=== PATIENT | female | born 1945 | race Caucasian/White ===

== ENCOUNTER 2019-04-18 10:45 | Inpatient (IN) ==
[2019-04-18 11:32] LABS: BASO# 0.01 X1000 (0.0-0.2); BASO% 0.2 % (0.0-0.8); EOS# 0.04 X1000 (0.0-0.7); EOS% 0.8 % (0.0-10.0); HEMATOCRIT 33.4 % (37.0-47.0); HEMOGLOBIN 9.5 g/dL (12.0-16.0); LYMPH# 1.96 X1000 (1.2-3.4); LYMPH% 38.9 % (20.5-51.1); MCH 27.5 PG (27-31); MCHC 28.4 g/dL (33-37); MCV 96.8 FL (81-99); MONO# 0.67 X1000 (0.11-0.59); MONO% 13.3 % (1.7-9.3); MPV 10.4 FL (7.4-10.4); NEUT# 2.36 X1000 (1.4-6.5); NEUT% 46.8 % (42.2-75.2); PLT 276 X1000 (130-400); RBC 3.45 XMIL (4.2-5.4); RDW 15.7 % (11.5-14.5); WBC 5.04 X1000 (4.8-10.8)
[2019-04-18 11:40] LABS: INR 1.09; PTT 30.9 Seconds (22.3-41.8)
--- NOTE | 2019-04-18 11:50 | Diag Imaging Result Doc PS360 ---
EXAM: CT HEAD W/O CONTRAST 04/18/2019 HISTORY: AMS TECHNIQUE: This exam was performed using automated exposure control, adjustment of mA or kV according to patient size, and/or use of iterative reconstruction technique. COMMENT: There is no evidence of mass effect, bleed, or abnormal extra-axial fluid collection. Compared to 07/16/2013 there has been no significant change in the appearance of the brain. The calvarium is intact. The visualized paranasal sinuses are clear. IMPRESSION: No evidence of acute intracranial disease. Electronically signed by Lico Atkins 04/18/2019 11:47 AM
--- NOTE | 2019-04-18 11:55 | Diag Imaging Result Doc PS360 ---
EXAM: CHEST-PORTABLE 04/18/2019 HISTORY: AMS TECHNIQUE: AP portable at 1128 COMMENT: There is cardiomegaly increased pulmonary vascularity and interstitial and alveolar pulmonary edema. The inspiration is less optimal than on 12/23/2018. IMPRESSION: Cardiomegaly and pulmonary edema. Electronically signed by Lico Atkins 04/18/2019 11:52 AM
[2019-04-18 11:56] LABS: AGAP 9; ALB/GLOB RATIO 1.2; ALBUMIN 3.4 g/dL (3.5-5.0); ALKALINE PHOSPHATASE 139 U/L (32-104); BUN 9 mg/dL (8-22); CALCIUM 8.9 mg/dL (8.8-10.2); CHLORIDE 97 mmol/L (98-107); CK PROFILE 20 U/L (24-173); COSMO 286; CREATININE 0.6 mg/dL (0.5-0.9); ESTIMATED GFR > 60; GLUCOSE 104 mg/dL (70-104); GOT 12 U/L (10-30); GPT 6 U/L (10-36); POTASSIUM 4.7 mmol/L (3.5-5.1); SODIUM 144 mmol/L (136-145); TCO2 38 mmol/L (25-35); TOTAL BILIRUBIN 0.33 mg/dL (0.20-1.00); TOTAL PROTEIN 6.2 g/dL (6.3-8.3)
[2019-04-18 12:14] LABS: URINE SOURCE CATH
[2019-04-18 12:18] LABS: BILIRUBIN URINE NEGATIVE (NEGATIVE); BLOOD URINE NEGATIVE (NEGATIVE); COLOR YELLOW; GLUCOSE URINE NEGATIVE (NEGATIVE); KETONE URINE NEGATIVE (NEGATIVE); LEUKOCYTES URINE NEGATIVE (NEGATIVE); NITRITE URINE NEGATIVE (NEGATIVE); PH URINE 5.5; PROTEIN URINE TRACE mg/dL (NEGATIVE); SP GRAVITY URINE 1.015; TURBIDITY URINE CLEAR (CLEAR); UR EPITHELIAL CELLS <10 /HPF (<10); URINE BACTERIA NEGATIVE /HPF; URINE RBC <10 /HPF (<10); URINE WBC <10 /HPF (<10); UROBILINOGEN URINE NORMAL (NORMAL)
[2019-04-18 12:49] LABS: BLOOD TYPE ARTERIAL; SAMPLE BLOOD; pH(98.6) 7.34 (7.35-7.45)
[2019-04-18 12:50] LABS: HCO3-(ACT) 45.2 mmoll (20.0-26.0)
[2019-04-18 12:51] LABS: PCO2(98.6) 84 mmHg (35-45)
[2019-04-18 12:52] LABS: ALLEN TEST YES; MODALITY CANNULA; THB 10.2 g/dL (11.5-17.4)
[2019-04-18 14:15] LABS: ALLEN TEST YES; BE 21.3 mmoll (-3.0-3.0); BLOOD TYPE ARTERIAL; HCO3-(ACT) 41.5 mmoll (20.0-26.0); METHB 0.6 % (0.0-1.5); O2(CT) 12.8 mL/dL (15.0-23.0); O2HB 96.1 % (95.0-99.0); PO2(98.6) 149 mmHg (60-100); SAMPLE BLOOD; SAO2 99.1 % (95.0-100.0); THB 9.2 g/dL (11.5-17.4); pH(98.6) 7.28 (7.35-7.45)
[2019-04-18 14:16] LABS: MODALITY CANNULA; PCO2(98.6) 110 mmHg (35-45)
--- NOTE | 2019-04-18 14:17 | PROVIDER DOCUMENTATION ---
This chart was entered by Alex Eng Scribe, acting as scribe for Valeriano Antonio DO. HPI-General Adult - General Chief Complaint: Altered Mental Status Stated Complaint: Lethargy Time Seen by Provider: 04/18/19 11:37 Source: patient, family Allergies/Adverse Reactions: Patient Allergies Allergy/AdvReac Type Severity Reaction Status Date / Time cefazolin sodium * Allergy Mild SWELLING Verified 04/03/17 08:23 [From Ancef] cephalexin monohydrate * Allergy Mild SWELLING Verified 04/03/17 08:23 [From Keflex] codeine Allergy Mild ITCHING Verified 04/18/19 11:02 Penicillins Allergy Mild RASH Verified 04/18/19 11:02 Home Medications: Home Medication List Medication Instructions Recorded Confirmed Last Taken Type Apixaban [Eliquis] 5 mg PO BID 08/30/18 04/18/19 Unknown History Duloxetine [Cymbalta] 30 mg PO DAILY 08/30/18 04/18/19 Unknown History Levothyroxine Sodium [Levoxyl] 112 mcg PO DAILY 08/30/18 04/18/19 Unknown History Lisinopril 40 mg PO BID 08/30/18 08/30/18 Unknown History Metolazone [Zaroxolyn] 5 mg PO DAILY #30 tablet 08/30/18 Unknown Rx Oxybutynin [Ditropan] 5 mg PO DAILY 08/30/18 04/18/19 Unknown History Pregabalin [Lyrica] 50 mg PO BID 08/30/18 04/18/19 Unknown History Spironolactone 25 mg PO DAILY #30 tablet 08/30/18 Unknown Rx Albuterol Sulfate 1 inh INH DAILY PRN 04/18/19 04/18/19 Unknown History Bisacodyl [Biscolax] 1 supp TX DAILY 04/18/19 04/18/19 Unknown History Calcium Carbonate/Vitamin D3 1 tab PO BID 04/18/19 04/18/19 Unknown History [Calcium 600 + Vit D 400 Softgl] Furosemide [Lasix] 40 mg PO DAILY 04/18/19 04/18/19 Unknown History Hydrocodone/Acetaminophen [[place] 1 tab PO Q6H PRN 04/18/19 04/18/19 Unknown History 5-325 Tablet] Loperamide [Imodium] 1 tab PO DIRECTED 04/18/19 04/18/19 Unknown History Pantoprazole Sodium 1 tab PO DAILY 04/18/19 04/18/19 Unknown History Potassium Chloride E.r. [Klor-Con] 20 meq PO DAILY 04/18/19 04/18/19 Unknown History Sennosides/Docusate Sodium 1 tab PO BID 04/18/19 04/18/19 Unknown History [Senna-S Laxative Tablet] - History of Present Illness -Gen Adult Nature of Presenting Problems: Pt is a 73 y/o F presents to the ED from [facility] rehab with hard to wake up. The son reports she is there to rehab after right femur surgery. The reports is pt took a [place] 5 this morning and then was hard to wake up. EMS reports giving Narcan and pt was more abusable on scene. On exam pt denies pain and is able to answer all questions. Location of Pain/Injury: reports: none Pain Radiation: reports: no radiation Quality of Pain: reports: none Onset/Duration: reports: this morning Timing: reports: improving Context/Activities at Onset: reports: none Associated Symptoms: denies: back/neck pain, chest pain, cough, dizziness, shortness of breath, trouble walking Similar Symptoms Previously?: No Recently seen or treated by another doctor?: No Review of Systems - Adult - REVIEW OF SYSTEMS - ADULT Constitutional: denies: chills, fever Eyes: reports: no symptoms reported Ears, Nose, Mouth & Throat: reports: no symptoms reported Cardiovascular: denies: chest pain, edema Respiratory: denies: cough Gastrointestinal: reports: no symptoms reported Genitourinary: denies: dysuria Musculoskeletal: denies: back pain, joint pain, neck pain Integumentary: reports: no symptoms reported Neurological: denies: dizziness/vertigo, headache/migraines Psychiatric: reports: no symptoms reported Endocrine: reports: no symptoms reported Hematologic/Lymphatic: reports: no symptoms reported Allergic/Immunologic: reports: no symptoms reported All Other Systems: Reviewed and Negative Past History - Adult - PAST MEDICAL HISTORY-ADULT Review of Records: reports: Old Records Reviewed, Nursing Assessment Review, Medications Reviewed Major Childhood Illnesses: reports: denies history Cardiovascular: reports: HTN Respiratory: reports: asthma, sleep apnea Gastrointestinal: reports: denies history Obstetrical/Gynecological: reports: denies history Genitourinary: reports: denies history Musculoskeletal: reports: arthritis, intervertebral disc disease Neurological: reports: denies history Endocrine/Immune: reports: thyroid disorder Other Conditions: reports: denies history - PRIOR SURGERIES/PROCEDURES Surgical/Procedure History: reports: back/neck - IMMUNIZATION STATUS Childhood Immunizations: See Nurse Assessment Flu Vaccine: See Nurse Assessment - FAMILY HISTORY Family History: reviewed, not pertinent - SOCIAL HISTORY Smoking: non-smoker Alcohol Use Frequency: never Living Situation: care facility Physical Exam-General - PHYSICAL EXAM-ADULT Initial Vital Signs Reviewed: Yes - CONSTITUTIONAL General Appearance: alert, no apparent distress - EYES Eyes: PERRL/EOMI, pink conjunctivae - HEAD, EARS, NOSE, MOUTH & THROAT HENMT: moist mucous membranes, normal ENT inspection, TMs normal, pharynx normal - NECK Neck: non-tender, full range of motion, supple, normal inspection - RESPIRATORY Respiratory: lungs clear, normal breath sounds - CARDIOVASCULAR Cardiovascular: normal peripheral pulses, regular rate, rhythm - GASTROINTESTINAL (ABDOMEN) Abdominal Exam: normal bowel sounds, non tender, soft - MUSCULOSKELETAL Back Exam: normal inspection, no CVA tenderness, no vertebral tenderness Extremity: normal range of motion, non-tender, normal gait, normal inspection (hip healing well incision) - SKIN Integumentary: normal color, normal turgor, warm/dry - NEUROLOGIC Neurologic: grossly normal, no motor/sensory deficits Progress - PLAN OF CARE/RESULTS Progress/Plan/Lab Results: Vital Signs - 8 hr 04/18/19 10:49 Temperature 97.7 F Pulse Rate 82 Respiratory Rate 20 Blood Pressure 147/101 O2 Sat by Pulse Oximetry 88 L Laboratory Results - last 24 hr 04/18/19 04/18/19 04/18/19 10:56 11:12 11:12 WBC 5.04 RBC 3.45 L Hgb 9.5 L Hct 33.4 L MCV 96.8 MCH 27.5 MCHC 28.4 L RDW Std Deviation 15.7 H Plt Count 276 MPV 10.4 Immature Gran % (Auto) 0.0 Neut % (Auto) 46.8 Lymph % (Auto) 38.9 Dod[place] % (Auto) 13.3 H Eos % (Auto) 0.8 Baso % (Auto) 0.2 Immature Gran # (Auto) 0.00 Neut # (Auto) 2.36 Lymph # (Auto) 1.96 Doddridge # (Auto) 0.67 H Eos # (Auto) 0.04 Baso # (Auto) 0.01 PT INR PTT (Actin FS) Sodium 144 Potassium 4.7 Chloride 97 L Carbon Dioxide 38 H Anion Gap 9 BUN 9 Creatinine 0.6 Estimated GFR/1.73 m2 > 60 BUN/Creatinine Ratio 15 Glucose 104 POC Glucose 102 Calculated Osmolality 286 Calcium 8.9 Total Bilirubin 0.33 AST 12 ALT 6 L Alkaline Phosphatase 139 H Creatine Kinase 20 L Total Protein 6.2 L Albumin 3.4 L Globulin 2.8 Albumin/Globulin Ratio 1.2 04/18/19 11:12 WBC RBC Hgb Hct MCV MCH MCHC RDW Std Deviation Plt Count MPV Immature Gran % (Auto) Neut % (Auto) Lymph % (Auto) Doddridge % (Auto) Eos % (Auto) Baso % (Auto) Immature Gran # (Auto) Neut # (Auto) Lymph # (Auto) Dod[place]idge # (Auto) Eos # (Auto) Baso # (Auto) PT 15.0 INR 1.09 PTT (Actin FS) 30.9 Sodium Potassium Chloride Carbon Dioxide Anion Gap BUN Creatinine Estimated GFR/1.73 m2 BUN/Creatinine Ratio Glucose POC Glucose Calculated Osmolality Calcium Total Bilirubin AST ALT Alkaline Phosphatase Creatine Kinase Total Protein Albumin Globulin Albumin/Globulin Ratio Orders Category Date Time Status Cardiac Monitoring DIRECTED Care 04/18/19 11:04 Active Finger Stick Blood Sugar (ED) DIRECTED Care 04/18/19 11:04 Active Oxygen Therapy- ED Nursing DIRECTED Care 04/18/19 11:04 Active Saline Loc NOW Care 04/18/19 11:04 Active CHEST-PORTABLE [RAD] Stat Exams 04/18/19 11:[address] HEAD W/O CONTRAST [CT] Stat Exams 04/18/19 11:07 Completed ABG [RESP] Routine Lab 04/18/19 11:04 Ordered CBC WITH ELECTRONIC DIFF [HEME] Stat Lab 04/18/19 11:12 Completed CK PROFILE [SP CHEM] Stat Lab 04/18/19 11:12 Completed COMPREHENSIVE METABOLIC PANEL [CHEM] Stat Lab 04/18/19 11:12 Completed LACTATE, PLASMA [CHEM] Stat Lab 04/18/19 11:12 Received PROTIME WITH INR [COAG] Stat Lab 04/18/19 11:12 Completed PTT [COAG] Stat Lab 04/18/19 11:12 Completed TROPONIN T Stat Lab 04/18/19 11:12 Received URINALYSIS [URINALYSIS] Stat Lab 04/18/19 11:04 Uncollected Altered Mental Status Stat Oth 04/18/19 11:04 Ordered EKG [EKG] Stat Ther 04/18/19 11:04 Ordered Result Diagrams: 04/18/19 11:12 04/18/19 11:12 - REASSESSMENT Reassessment #1 Time Reassessed: 13:53 (Pt is obtunded , arousable with sternal rub) Status: worsening - XRAY 1 XRAY Study: Chest Impression: Abnormal ( EXAM: CHEST-PORTABLE 04/18/2019 HISTORY: AMS TECHNIQUE: AP portable at 1128 COMMENT: There is cardiomegaly increased pulmonary vascularity and interstitial and alveolar pulmonary edema. The inspiration is less optimal than on 12/23/2018. IMPRESSION: Cardiomegaly and pulmonary edema. Electronically signed by Lico Atkins 04/18/2019 11:52 AM) - CT/MRI 1 CT Study: Head Impression: Normal (EXAM: CT HEAD W/O CONTRAST 04/18/2019 HISTORY: AMS TECHNIQUE: This exam was performed using automated exposure control, adjustment of mA or kV according to patient size, and/or use of iterative reconstruction technique. COMMENT: There is no evidence of mass effect, bleed, or abnormal extra-axial fluid collection. Compared to 07/16/2013 there has been no significant change in the appearance of the brain. The calvarium is intact. The visualized paranasal sinuses are clear. IMPRESSION: No evidence of acute intracranial disease. Electronically signed by Lico Atkins 04/18/2019 11:47 AM) - CONSULTS/PCP/HOSPITALIST Notification #1 *Consult/PCP/Hospitalist*: Hospitalist-Dr Mei Spoke with Nedra Time Discussed: 14:10 Reason/Comments: Admission Consult Disposition: Will see in ED Departure - Departure Date of Disposition Decision: 04/18/19 Time of Disposition Decision: 14:16 DIAGNOSIS: Hypercarbia Disposition: ADMITTED INPATIENT 09 Certified Medical Emergency: Emergent Condition: Serious Referrals and Follow-Ups: Susana Bryant MD [Primary Care Provider] - - Critical Care Note This patient required my direct & personal management of CC.: Yes Total Time (mins): 57 Critical Care Statement: This patient required my direct personal management to treat or rule out processes, the absence of which, could potentiallly result in sudden, clinically significant life or limb threatening deterioration. Attestation - Physician/ GARRETT Attestation Patient care was provided by Advanced Practice Provider:: No The physician spent face to face time with patient:: Yes Advanced Practice Provider documentation review:: Supervising physician onsite and consulted in the evaluation and care of this patient. The physician did have a face to face encounter with the patient. This chart was documented by the indicated scribe, (Alex Eng Scribe) and accurately reflects the services I performed and decisions made by me, Valeriano Antonio DO, as attested by the provider's signature.
--- NOTE | 2019-04-18 14:24 | EKG Report ---
Test Performed on : 04/18/2019 11:05:25 AM Test Reason : AMS Blood Pressure : / mmHG Vent. Rate : 064 BPM Atrial Rate : 064 BPM P-R Int : 184 ms QRS Dur : 098 ms QT Int : 394 ms P-R-T Axes : 054 -17 066 degrees QTc Int : 406 ms Sinus rhythm. with premature atrial complexes. Otherwise normal ECG When compared with ECG of 30-AUG-2018 08:07, premature atrial complexes. are now present Nonspecific T wave abnormality has replaced inverted T waves in Lateral leads QT has shortened Unconfirmed Result
[2019-04-18] MEDS ORDERED: NARCAN IV ONE (14:28)
[2019-04-18] MEDS ORDERED: NARCAN ONE (14:32)
[2019-04-18] MEDS: NARCAN IV ONE ×2 (14:32→17:23)
--- NOTE | 2019-04-18 15:45 | HISTORY AND PHYSICAL ---
PRIMARY CARE PROVIDER: Dr. Thiago Greco. CHIEF COMPLAINT: Per ED record, altered mental status and lethargy. HISTORY OF PRESENT ILLNESS: Ms. Susan Chadwick is a 73-year-old female who had a recent fall with a broken hip. She is status post right hip surgery by Dr. Xiong in [facility]. She has been at [facility] since the 16 of March. Atrial fibrillation/flutter with RVR status post ablation in [place], Guillain-Guide Rock syndrome, hypertension, gastric bypass, chronic anemia, fibromyalgia. Per ED report, the patient was hard to wake up this morning. The patient was given a [place] and then became hard to wake up. EMS gave Narcan, and the patient was more arousable on the scene. Upon arriving to the ED, she was given another dose of Narcan and came around. Per 's report at bedside, the patient after given a 2nd dose of Narcan reported that she did not request any pain medication and did not recall any of the events that had happened. She is currently obtunded and placed on BiPAP. Initial CO2 was 84. After recheck on her ABG, she had gone up to 110, and placed on BiPAP. Carbon dioxide on chemistry was 38. Her urinalysis was negative. She will be admitted to the ICU. We will recheck her ABG in 2 hours. She remains a full code. If she does not have any improvement, we will intubate. The is on board. PAST MEDICAL HISTORY: 1. Hypertension. 2. Atrial fibrillation/atrial flutter status post ablation in [place]. 3. Guillain-Guide Rock syndrome history. 4. Hypertension. 5. Chronic anemia. 6. Fibromyalgia. 7. Recent fall with a hip fracture. PAST SURGERY HISTORY: 1. Bilateral knee replacements. 2. Bilateral carpal tunnel releases. 3. Lumbar diskectomy. 4. Neck surgery. 5. Recent right hip surgery by Dr. Xiong in [facility]. 6. Gastric bypass. 7. Lumbar diskectomy. FAMILY HISTORY: Unknown. SOCIAL HISTORY: She is currently at [facility] for rehab for right hip replacement. She has a supportive at the bedside. REVIEW OF SYSTEMS: Unable to obtain secondary to the patient being obtunded. PHYSICAL EXAMINATION: VITAL SIGNS: Temperature 98.5 degrees, heart rate 55, respirations 20, blood pressure 128/48, O2 is 94% on BiPAP. GENERAL: Ms. Chadwick is lying in the bed on BiPAP. She minimally responds to sternal rub. HEENT: Atraumatic, normocephalic. PERRL. NECK: Supple. Trachea midline. CARDIOVASCULAR: S1, S2 appreciated. No murmurs, gallops, or rubs noted. RESPIRATORY: Lung sounds clear bilaterally. GI: Soft, flat, appeared nontender. Positive bowel sounds in 4 quadrants. EXTREMITIES: Lower extremities were negative for edema. SKIN: She does have an incision that is covered on the right hip. NEUROLOGIC: Unable to assess secondary to the patient being obtunded. She slightly responded to a sternal rub. DIAGNOSTIC DATA: 1. Chest x-ray with cardiomegaly and pulmonary edema. 2. EKG, sinus rhythm with PACs at 64 beats per minute. 3. Head CT. No evidence of acute or intracranial disease. LABORATORY DATA: White count 5, hemoglobin and hematocrit 9 and 33, platelet count is 276,000. Initial ABG, pH was 7.34 and now 7.28; pCO2 initially 84, now 110. Plasma lactate 0.50. Serum lactate 0.9. Chemistry: Sodium 144, carbon dioxide 38, BUN 9, creatinine 0.6, blood glucose was 104. Urinalysis is negative for bacteria an negative for nitrites. ASSESSMENT AND PLAN: 1. Questionable accidental overdose. Per report, she was given [place] and came around with Narcan with EMS and in the ED. We will give another dose of Narcan. 2. Carbon dioxide retention. 3. Acute hypoxemic hypercapnic respiratory failure. We have placed her on BiPAP and in 2 hours will recheck an ABG. If no improvement, we will intubate. We will consult Pulmonology. 4. Recent fall status post hip fracture with repair in [facility]. The patient was at [facility] for physical therapy since the 16 of March. 5. Guillain-Guide Rock syndrome history. 6. Hypertension. 7. Atrial fibrillation/atrial flutter with ablation in [place]. 8. Gastric bypass. 9. Chronic anemia. 10. Fibromyalgia. 11. Further recommendation to follow physician evaluation, laboratory data and diagnostic data. Dictated by CHRISSY Odom for Alvarez Mei MD cc: MD Thiago Gómez MD I have seen and examined Ms Chadwick today in the ER. No family member at bedside. I have also reviewed her labs and imaging data. Ms Chadwick is currently under Bipap for acute Hypercarbic respiratory failure that got worsened. She is currently altered and less responsive presumably due to CO2 Narcosis. I agree with the the above H and P and the plan reflects my opinion discussed with the VERTICAL MILL OPERATOR. MARIELENA
[2019-04-18] MEDS ORDERED: LASIX IV ONE (16:06)
[2019-04-18] MEDS ORDERED: ZOFRAN IV PRN (16:11)
[2019-04-18 17:00] LABS: BLOOD TYPE ARTERIAL; SAMPLE BLOOD
[2019-04-18 17:01] LABS: ALLEN TEST YES; BE 21.1 mmoll (-3.0-3.0); HCO3-(ACT) 41.3 mmoll (20.0-26.0); METHB 0.8 % (0.0-1.5); O2(CT) 12.3 mL/dL (15.0-23.0); O2HB 93.5 % (95.0-99.0); PO2(98.6) 68 mmHg (60-100); SAO2 96.4 % (95.0-100.0); SRATE 18 BPM; THB 9.3 g/dL (11.5-17.4); pH(98.6) 7.42 (7.35-7.45)
[2019-04-18 17:02] LABS: MODALITY BI PAP; PCO2(98.6) 75 mmHg (35-45)
[2019-04-19 05:11] LABS: BASO# 0.03 X1000 (0.0-0.2); BASO% 0.6 % (0.0-0.8); HEMATOCRIT 32.5 % (37.0-47.0); HEMOGLOBIN 9.1 g/dL (12.0-16.0); LYMPH# 2.08 X1000 (1.2-3.4); LYMPH% 41.4 % (20.5-51.1); MCH 27.2 PG (27-31); MONO# 0.54 X1000 (0.11-0.59); MONO% 10.8 % (1.7-9.3); MPV 10.5 FL (7.4-10.4); NEUT# 2.27 X1000 (1.4-6.5); NEUT% 45.2 % (42.2-75.2); PLT 283 X1000 (130-400); RBC 3.35 XMIL (4.2-5.4); RDW 15.6 % (11.5-14.5); WBC 5.02 X1000 (4.8-10.8)
[2019-04-19 05:15] LABS: ESTIMATED GFR > 60
[2019-04-19 05:48] LABS: POTASSIUM 4.3 mmol/L (3.5-5.1); SODIUM 145 mmol/L (136-145)
[2019-04-19 05:49] LABS: AGAP 5; ALB/GLOB RATIO 1.1; ALBUMIN 3.3 g/dL (3.5-5.0); ALKALINE PHOSPHATASE 124 U/L (32-104); BUN 9 mg/dL (8-22); CHLORIDE 97 mmol/L (98-107); COSMO 288; CREATININE 0.7 mg/dL (0.5-0.9); GLUCOSE 101 mg/dL (70-104); GOT 12 U/L (10-30); GPT 5 U/L (10-36); TCO2 43 mmol/L (25-35); TOTAL BILIRUBIN 0.32 mg/dL (0.20-1.00); TOTAL PROTEIN 6.2 g/dL (6.3-8.3)
[2019-04-19 06:00] LABS: ALLEN TEST YES; BE 24.8 mmoll (-3.0-3.0); BLOOD TYPE ARTERIAL; HCO3-(ACT) 44.3 mmoll (20.0-26.0); METHB 1.3 % (0.0-1.5); O2(CT) 12.1 mL/dL (15.0-23.0); PO2(98.6) 105 mmHg (60-100); SAMPLE BLOOD; SAO2 98.4 % (95.0-100.0); THB 8.9 g/dL (11.5-17.4); pH(98.6) 7.39 (7.35-7.45)
[2019-04-19 06:01] LABS: MODALITY CANNULA
[2019-04-19 06:03] LABS: PCO2(98.6) 88 mmHg (35-45)
--- NOTE | 2019-04-19 10:46 | PROGRESS NOTE ---
DATE: 04/19/2019 SUBJECTIVE: This morning Ms. Chadwick is awake and conversational. She refers to be feeling a lot better. OBJECTIVE: Vital signs: Blood pressure 155/57, pulse of 81, respirations 22, and temperature 97.7 degrees. The patient is saturating 93%. General: On general exam, Ms. Chadwick is a 73- year-old elderly female. She has a BMI of 32.2. She is in bed, does not seems to be in any distress. Mucosa is pink and moist. Anicteric. Acyanotic. Neck: Supple. Chest: Air entry is bilaterally reduced. There is diffuse end expiratory wheezing bilateral, and some distant crackles posteriorly. Cardiovascular: Regular rate and rhythm. Abdomen: Soft and nontender. Extremities: Trace pedal edema. COMMERCIAL REAL ESTATE UNDERWRITER: Patient is awake, alert, and oriented. LABORATORY DATA: WBC is 5.02, hemoglobin is 9.1, platelet count of 283,000. Chemistry is also reviewed. Chloride 97. Bicarb is 43. ABG shows pH is 7.39, pCO2 is 88, PO2 is 105, and this was on nasal cannula. ASSESSMENT: 1. Acute on chronic hypercarbic respiratory failure. This seems to be gradually improving. PCO2 is down to 88. We will continue using the BiPAP especially during nighttime. 2. Acute hypoxemic respiratory failure, improving with oxygen therapy. 3. Altered mental status on presentation secondary to CO2 narcosis. 4. Recent fall resulting into a right hip fracture status post repair at [facility]. 5. History of Guillain-Johnson. 6. History of atrial fibrillation/atrial flutter with ablation in [place]. 7. Obese with a BMI of 32.2. 8. Mild congestive heart failure most likely with preserved ejection fraction. Patient is pending an echocardiogram. cc: Alvarez Mei MD
[2019-04-19] MEDS ORDERED: DUONEB (A & A) INH PRN (18:28)
--- NOTE | 2019-04-19 23:12 | CONSULTATION ---
DATE OF CONSULTATION: 04/19/2019 REQUESTING PROVIDER: CHRISSY Odom. REASON FOR CONSULTATION: Hypoxic hypercapnic respiratory failure. HISTORY OF PRESENT ILLNESS: This is a 73-year-old female with a medical history of COPD, obstructive sleep apnea, anxiety and depression, atrial fibrillation, congestive heart failure, hypertension, chronic anemia, Guillain-[place] syndrome history, fibromyalgia and recent fall with a hip fracture. She presented to the ER yesterday from [facility] with altered mental status. EMS reported giving Narcan. Upon arrival to the ER, the patient was alert with grossly normal mental status. Initial workup in the ER revealed acute hypoxemic hypercapnic respiratory with peak CO2 of 110, questionable accidental overdose of [place] and pulmonary edema. She has been admitted to the medical floor for further evaluation and management. Currently, the patient is lying in bed comfortably with no acute distress. She is very conversational. She reports that she does not remember what happened before she came to the hospital, but right now she feels a lot better. She reports that she had been treated with pneumonia twice this year in November and January with Keflex and Levaquin and likely Levaquin outpatient. She reports some chronic shortness of breath, especially with activity, chronic pedal edema but no cough, wheezing, chest pain or palpitation. She also reports some hearing problems and bilateral lower extremity neuropathy. PAST MEDICAL HISTORY: 1. COPD. The patient reports currently she is not on any maintenance inhaler. She has been using Symbicort and another inhaler that she is not actual at this time. 2. Obstructive sleep apnea. The patient was placed on home CPAP therapy before, but she has quit using it for about 1 year ago as she cannot tolerate it. 3. Congestive heart failure. The patient reports she takes Lasix twice a day. 4. Hypertension. 5. Atrial fibrillation, atrial flutter, status post operation in [facility]. The patient reports she is going to have another procedure in [place] next month. 6. Guillain-[place] syndrome history diagnosed in 2012. 7. Anxiety and depression. 8. Chronic anemia. 9. Fibromyalgia. 10. Recent fall with a hip fracture s/p surgical repair. 11. Hypothyroidism. PAST SURGICAL HISTORY: 1. Bilateral knee replacements. 2. Bilateral carpal tunnel releases. 3. Lumbar diskectomy. 4. Neck surgery. 5. Recent right hip surgery. 6. Gastric bypass. 7. Tendo-Achilles surgery. 8. Tonsillectomy. 9. Cholecystectomy. 10. Cataract surgery. SOCIAL HISTORY: The patient currently lives at [facility] for rehab for a right hip replacement. 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 She is and has a supportive . She used to smoke 1 pack per day for about 30 years and quit smoking 30 years ago. She has no history of alcohol or illicit drug use. FAMILY HISTORY: Father have arthritis, asthma and heart disease. Mother had heart disease. ALLERGIES: Cefepime, cephalexin, codeine, and penicillin. REVIEW OF SYSTEMS: A 10-point review of systems was conducted and the pertinent is listed within the HPI, otherwise noncontributory. PHYSICAL EXAMINATION: Vital Signs: Temperature 97.5 degrees, blood pressure 139/66, pulse 64, respiratory rate 16, oxygen saturation 98% on nasal cannula at 5 L/minute. General: Present, cooperative, and very conversational lying in bed with no acute distress. HEENT: Atraumatic, normocephalic. Trachea midline. Mucosa pink and moist. Respiratory: Breathing even and unlabored with no accessory muscle use at this time. Auscultation revealed diminished breathing sounds bibasilarly with mild expiratory wheezing bilateral and early inspiratory crackles bibasilarly. Cardiovascular: Regular rate and rhythm. Gastrointestinal: Soft, nondistended, nontender. Bowel sounds normoactive in all 4 quadrants. Extremities: Pedal edema 1+. No cyanosis. No clubbing. Dorsalis pedis 1+ bilaterally. Neurologic: Alert and oriented x3. Speech fluent. Follows commands. LAB DATA: White blood cell 5.02, hemoglobin 9.1, hematocrit 32.5, platelet 283,000. Sodium 145, potassium 4.3, chloride 97, carbon dioxide 43, BUN 9, creatinine 0.7 and glucose 101. ABG, pH 7.39, pCO2 88, PO2 105, HC03 44.3, base excess 24.9, and oxyhemoglobin 95.0. IMAGING DATA: Chest x-ray is on 04/18/2019 show cardiomegaly and pulmonary edema. ASSESSMENT: This is a 73-year-old female with a medical history of COPD, obstructive sleep apnea, congestive heart failure, atrial fibrillation, hypertension, history of Guillain- [place] syndrome, chronic anemia, fibromyalgia, recent fall with a hip fracture and hypothyroidism. She has been admitted to the medical floor with questionable accidental overdose of [place] and acute hypoxemic hypercapnic respiratory failure. 1. Acute hypoxic respiratory failure. 2. Acute on chronic hypercapnic respiratory failure. 3. Questionable accidental overdose of [place]. 4. Chronic obstructive pulmonary disease. 5. Obstructive sleep apnea. PLAN: 1. Continue supplemental oxygen. Continue BiPAP at bedtime and as needed. 2. Diuretics if indicated. We will start bronchodilators. 3. Follow up with ABG, urine culture and sputum culture, chest x-ray if indicated. 4. Educate patient on the importance of CPAP home therapy and highly recommend patient to continue using CPAP at home as directed. 5. Further recommendations pending hospital course. Thank you for the courtesy of this consult. Dictated by CHRISSY Zee for Kimberly Tidwell MD cc: CHRISSY Zee MD [facility]
[2019-04-20 05:14] LABS: ALLEN TEST YES; BLOOD TYPE ARTERIAL; HCO3-(ACT) 44.3 mmoll (20.0-26.0); METHB 0.7 % (0.0-1.5); O2(CT) 11.5 mL/dL (15.0-23.0); O2HB 90.2 % (95.0-99.0); PO2(98.6) 63 mmHg (60-100); SAMPLE BLOOD; SAO2 92.9 % (95.0-100.0); SRATE 18 BPM; pH(98.6) 7.36 (7.35-7.45)
[2019-04-20 05:16] LABS: MODALITY BI PAP; PCO2(98.6) 96 mmHg (35-45)
--- NOTE | 2019-04-20 08:11 | ECHO REPORT ---
ORDER DATE: 04/19/2019 INTERPRETING PHYSICIAN: Dr. Evans REQUESTING PHYSICIAN: CLINICAL INDICATIONS: This is a 73-year-old female with CHF, hypertension. M-MODE MEASUREMENTS: Right ventricle: cm. Left ventricle end diastole: 5.5 cm. Left ventricle end systole: 3.4 cm. Posterior wall: 1.1 cm. Interventricular septum: 1.1 cm. Left atrium: 4.7 cm. Aortic root: 2.7 cm. SUMMARY OF 2-DIMENSIONAL IMAGIN. The left ventricular function is normal. Ejection fraction is 67%. There is no wall motion abnormality. Cardiac Cycles appeared to be irregular. 2. Aortic valve looks normal. Color flow mapping is unremarkable. 3. Mitral annulus shows heavy calcification. Color flow mapping of mitral valve indicates mild degree of regurgitation. 4. The pulse wave Doppler of mitral inflow shows a "normal" E/A ratio. There is a tall E wave and short A wave. 5. Tissue Doppler of septal and lateral mitral annulus averages 10 cm. 6. The left atrium is moderate to significantly dilated and so is the right atrium. 7. Tricuspid valve shows a mild degree of regurgitation. 8. The inferior vena cava is enlarged. 9. The pulmonary systolic pressure is estimated at 65 mmHg. 10.Pulmonic valve is unremarkable. 11.There is no pericardial effusion, mass or thrombus. CONCLUSIONS: In summary, this study shows: 1. Normal left ventricular systolic function. 2. Unremarkable aortic valve. 3. Calcified mitral annulus with mild degree of mitral regurgitation. 4. Trivial degree of tricuspid regurgitation with moderate Pulmonary Arterial Hypertension: pulmonary systolic pressure of 65 mmHg. 5. No definite diastolic dysfunction. 6. Moderately to significantly enlarged atria. Clinical correlation is recommended. cc: MD Alvarez Juan MD [facility]
[2019-04-20 08:26] LABS: ESTIMATED GFR > 60
[2019-04-20 08:27] LABS: AGAP 7; ALBUMIN 3.1 g/dL (3.5-5.0); BUN 11 mg/dL (8-22); CALCIUM 9.1 mg/dL (8.8-10.2); CHLORIDE 97 mmol/L (98-107); COSMO 291; CREATININE 0.6 mg/dL (0.5-0.9); GLUCOSE 89 mg/dL (70-104); PHOSPHORUS 4.1 mg/dL (2.7-4.5); POTASSIUM 4.3 mmol/L (3.5-5.1); SODIUM 147 mmol/L (136-145); TCO2 43 mmol/L (25-35)
[2019-04-20] MEDS ORDERED: NORCO-5 PO PRN (09:14)
[2019-04-20] MEDS: LASIX PO SCH (09:43)
[2019-04-20] MEDS: SYNTHROID PO SCH (09:43)
[2019-04-20 10:29] LABS: BLOOD TYPE ARTERIAL; SAMPLE BLOOD
[2019-04-20 10:30] LABS: ALLEN TEST YES; BE 25.8 mmoll (-3.0-3.0); O2(CT) 12.6 mL/dL (15.0-23.0); O2HB 93.4 % (95.0-99.0); PO2(98.6) 79 mmHg (60-100); SAO2 96.7 % (95.0-100.0); THB 9.5 g/dL (11.5-17.4); pH(98.6) 7.38 (7.35-7.45)
[2019-04-20 10:31] LABS: MODALITY CANNULA; PCO2(98.6) 93 mmHg (35-45)
[2019-04-20] MEDS ORDERED: DUONEB (A & A) INH PRN (10:31)
--- NOTE | 2019-04-20 10:41 | PROGRESS NOTE ---
DATE: 04/20/2019 SUBJECTIVE: This morning, Ms. Chadwick refers to be doing well. Denies any new complaints. According to her, she used the BiPAP for most part of the night. However, this morning, her pCO2 continues to be remarkably elevated. OBJECTIVE: Vital signs: Blood pressure is 169/71, pulse of 74, respiration is 14, temperature 97.9 degrees. The patient was saturating 98% on 5 L. General: Ms. Chadwick is a 73-year-old elderly female. She is in bed in no distress. HEENT: Mucosa is pink and moist. Anicteric. Acyanotic. Neck: Supple. Chest: Air entry is bilaterally reduced. There is mild end-expiratory wheezing in both lung de la torre with occasional crackles posteriorly. Cardiovascular: Regular rate and rhythm. No murmurs, no rubs, no gallops. Gastrointestinal: Abdomen was soft, nontender. Bowel sounds present. Extremities: Trace of pedal edema. Central nervous system: Patient is awake, alert, oriented. There is no focal neurological deficit. LABORATORY DATA: No CBC for this morning. The pH is 7.34, pCO2 is 96, PaO2 of 63 with a bicarb of 44.3 on the arterial blood gas. The chemistry is also reviewed and proBNP is down to 1719 from over 3000. IMAGING STUDIES: No new imaging studies. An echocardiogram yesterday does show an ejection fraction of 67% with no wall motion abnormality. However, it did appear on the imaging that there was some irregular questionable atrial fibrillation. There was moderately to significant enlarged atria. There is a trivial degree of tricuspid regurgitation with pulmonary pressure of 65 mmHg. ASSESSMENT: 1. Acute on chronic hypercarbic respiratory failure. Patient continues to be on a BiPAP. PCO2 this morning is up over 90. The patient is going to be transferred to the ICU for close monitoring. 2. Acute hypoxemic respiratory failure. This is improved. 3. Altered mental status on presentation, presumably due to CO2 narcosis and narcotic medications. Improved. 4. Recent fall resulting into a right hip fracture status post repair at [facility]. 5. History of Guillain-[place]. The patient does not seem to be in any flare at this point. 6. History of atrial fibrillation/atrial flutter with ablation in [place]. The patient is on Eliquis for stroke prophylaxis. 7. Obesity with body mass index of 32.2. 8. Mild congestive heart failure with preserved ejection fraction. 9. Moderate pulmonary hypertension with a pulmonary artery systolic pressure of 65 on echo noted. 10. History of obstructive sleep apnea and chronic obstructive pulmonary disease. PLAN: 1. In general, Ms. Ruvalcaba seems to be doing fairly okay mentation is a whole lot better now. However, her pCO2 continues to go up. She is going to be transferred to the ICU for close respiratory monitoring. She is going to be using the BiPAP for the major part of this morning and we will repeat her ABG 4 to 6 hours from now. 2. I have discussed the plan with the patient and have also spoken with Pulmonary Medicine on board and will keep a very close eye on her respiratory status. CRITICAL CARE TIME SPENT: 45 minutes. cc: Alvarez Mei MD
[2019-04-20] MEDS: DUONEB (A & A) INH SCH ×4 (11:28→23:23)
--- NOTE | 2019-04-20 13:58 | PROVIDER PROGRESS NOTE ---
Progress Note Evaluation time: [id number] 04/20/2019 SUBJECTIVE: The patient is just arriving to the ICU. She is lying in bed with no complaining. She states she is feeling better. She started BiPAP last night around 9pm and off this morning close to breakfast time. She reports some dry cough and mild SOB. She also reports that she had a bowel movement this morning. OBJECTIVE: Vital Signs: Temperature 97.9 degrees, pulse 74, blood pressure 169/71, respiration rate 14, O2 saturation 98% on NC at 5L. General: Lying in bed comfortably with no acute distress. HEENT: Atraumatic, normocephalic. Trachea midline. Mucosa pink and moist. Respiratory: Breathing even and unlabored with no accessory muscle. Auscultation revealed diminished breathing sounds bibasilarly with expiratory wheezing bilateral and early inspiratory crackles bibasilarly. Cardiovascular: Regular rate and rhythm. Gastrointestinal: Soft, nondistended, nontender. Bowel sounds normoactive in all 4 quadrants. Extremities: Pedal edema 1+. No cyanosis. No clubbing. Dorsalis pedis 1+ bilaterally. Neurologic: Alert and oriented x3. Speech fluent. Follows commands. LABORATORY DATA: pH 7.38, pCO2 93, PaO2 79, bicarb 45, base excess 25.8, oxyhemoglobin 93.4. Sodium 147, potassium 4.3, chloride 97, CO2 43, BUN 11, creatinine 0.6, glucose 89 IMAGING: None today. ASSESSMENT: 1. Acute on chronic hypoxic respiratory failure. 2. Acute on chronic hypercapnic respiratory failure. 3. Congestive heart failure, mild. 4. Pulmonary hypertension, moderate. 5. Questionable accidental overdose of [place]. 6. Chronic obstructive pulmonary disease. 7. Obstructive sleep apnea. PLAN: 1. Continue supplemental oxygen. Continue BiPAP at bedtime and as needed. 2. Diuretics if indicated. Continue bronchodilators. 3. Follow up with ABG, BMP, urine culture and sputum culture, chest x-ray if indicated. 4. Educate patient on the importance of CPAP home therapy and highly recommend patient to continue using CPAP at home as directed. 5. Further recommendations pending hospital course. Thank you for the consult! (Geradro Antonio) Joint Evaluation as above 30 minutes (Kimberly Tidwell I.)
[2019-04-20 16:19] LABS: BASO# 0.02 X1000 (0.0-0.2); BASO% 0.3 % (0.0-0.8); EOS# 0.07 X1000 (0.0-0.7); EOS% 1.2 % (0.0-10.0); HEMATOCRIT 30.7 % (37.0-47.0); HEMOGLOBIN 8.8 g/dL (12.0-16.0); LYMPH% 34.4 % (20.5-51.1); MCH 27.3 PG (27-31); MCHC 28.7 g/dL (33-37); MCV 95.3 FL (81-99); MONO# 0.62 X1000 (0.11-0.59); MONO% 10.7 % (1.7-9.3); NEUT% 53.4 % (42.2-75.2); PLT 261 X1000 (130-400); RBC 3.22 XMIL (4.2-5.4); RDW 15.3 % (11.5-14.5); WBC 5.81 X1000 (4.8-10.8)
[2019-04-20 16:59] LABS: AGAP 8; ALBUMIN 3.2 g/dL (3.5-5.0); BUN 11 mg/dL (8-22); CALCIUM 8.7 mg/dL (8.8-10.2); CHLORIDE 93 mmol/L (98-107); COSMO 284; CREATININE 0.6 mg/dL (0.5-0.9); ESTIMATED GFR > 60; GLUCOSE 96 mg/dL (70-104); PHOSPHORUS 3.4 mg/dL (2.7-4.5); POTASSIUM 3.8 mmol/L (3.5-5.1); SODIUM 143 mmol/L (136-145); TCO2 42 mmol/L (25-35)
[2019-04-20 17:20] LABS: EOS 3 % (1-10); HYPOCHROM 1+; LYMPHS 29 % (21-51); MONO 8 % (1-9); SEGS 60 % (42-75)
[2019-04-20] MEDS: ELIQUIS PO SCH (20:21)
[2019-04-20] MEDS: CALTRATE 600 + D PO SCH (20:21)
[2019-04-20] MEDS: LYRICA PO SCH (20:21)
[2019-04-20] MEDS: PERICOLACE PO SCH ×2 (20:22→20:24)
[2019-04-21] MEDS: DUONEB (A & A) INH SCH ×6 (03:22→22:02)
[2019-04-21 04:55] LABS: ALLEN TEST YES; BE 26.6 mmoll (-3.0-3.0); BLOOD TYPE ARTERIAL; HCO3-(ACT) 45.6 mmoll (20.0-26.0); METHB 0.4 % (0.0-1.5); O2(CT) 14.1 mL/dL (15.0-23.0); O2HB 93.4 % (95.0-99.0); PO2(98.6) 70 mmHg (60-100); SAMPLE BLOOD; SAO2 96.3 % (95.0-100.0); THB 10.7 g/dL (11.5-17.4)
[2019-04-21 04:56] LABS: MODALITY BI PAP; PCO2(98.6) 69 mmHg (35-45)
[2019-04-21 05:25] LABS: BASO# 0.01 X1000 (0.0-0.2); BASO% 0.2 % (0.0-0.8); EOS# 0.14 X1000 (0.0-0.7); EOS% 2.6 % (0.0-10.0); HEMATOCRIT 28.5 % (37.0-47.0); HEMOGLOBIN 8.3 g/dL (12.0-16.0); LYMPH# 2.18 X1000 (1.2-3.4); LYMPH% 41.1 % (20.5-51.1); MCH 26.9 PG (27-31); MCHC 29.1 g/dL (33-37); MCV 92.5 FL (81-99); MONO# 0.62 X1000 (0.11-0.59); MONO% 11.7 % (1.7-9.3); MPV 11.4 FL (7.4-10.4); NEUT# 2.35 X1000 (1.4-6.5); NEUT% 44.4 % (42.2-75.2); PLT 261 X1000 (130-400); RBC 3.08 XMIL (4.2-5.4); RDW 15.3 % (11.5-14.5)
[2019-04-21 05:37] LABS: ESTIMATED GFR > 60
[2019-04-21 05:45] LABS: AGAP 8; ALBUMIN 2.9 g/dL (3.5-5.0); BUN 12 mg/dL (8-22); CALCIUM 8.6 mg/dL (8.8-10.2); CHLORIDE 94 mmol/L (98-107); COSMO 286; CREATININE 0.7 mg/dL (0.5-0.9); GLUCOSE 90 mg/dL (70-104); PHOSPHORUS 2.9 mg/dL (2.7-4.5); POTASSIUM 3.6 mmol/L (3.5-5.1); SODIUM 144 mmol/L (136-145); TCO2 42 mmol/L (25-35)
[2019-04-21] MEDS: DULCOLAX PR SCH (08:26)
[2019-04-21] MEDS: CYMBALTA PO SCH (08:26)
[2019-04-21] MEDS: DITROPAN PO SCH (08:26)
[2019-04-21] MEDS: PROTONIX PO SCH (08:26)
[2019-04-21] MEDS: CALTRATE 600 + D PO SCH ×2 (08:27→21:03)
[2019-04-21] MEDS: LASIX PO SCH (08:27)
[2019-04-21] MEDS: LYRICA PO SCH ×2 (08:27→21:03)
[2019-04-21] MEDS: ELIQUIS PO SCH ×2 (08:27→21:03)
[2019-04-21] MEDS: SYNTHROID PO SCH (08:27)
[2019-04-21] MEDS: PERICOLACE PO SCH ×2 (08:27→21:04)
--- NOTE | 2019-04-21 08:50 | Diag Imaging Result Doc PS360 ---
EXAM: CHEST-PORTABLE HISTORY: dyspnea TECHNIQUE: Portable chest COMPARISON: 12/23/2018 FINDINGS: The heart remains enlarged. There is vascular distention. No consolidation. There could be tiny effusions. Heart surgery to the lower neck. IMPRESSION: Cardiomegaly with pulmonary edema. Electronically signed by Lyle Dave 04/21/2019 8:48 AM
[2019-04-21] MEDS ORDERED: LASIX IV ONE (09:00)
--- NOTE | 2019-04-21 11:56 | PROGRESS NOTE ---
DATE: 04/21/2019 SUBJECTIVE: This morning Ms. Chadwick referred to be doing a whole lot better. No new complaints. OBJECTIVE: Vital Signs: Blood pressure 151/47, pulse of 62, respirations 15, and temperature is 98.6 degrees. General: Ms. Chadwick is a 73-year-old female. She is in bed in no distress. Mucosa is pink and moist. Anicteric. Acyanotic. Neck: Supple. Lungs: Chest with good air entry bilateral. There are still a few crackles in the posterior lung de la torre. Cardiovascular: Regular rate and rhythm. No murmurs, no rubs, no gallops. Abdomen: Soft. Extremities: No pedal edema. 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 There is no focal neurological deficit. LABORATORY DATA: CBC is reviewed. Unremarkable except for normocytic anemia. Chemistry is also reviewed. Bicarb is a little elevated. Otherwise, normal parameters. A chest x-ray this morning shows cardiomegaly with pulmonary edema. An echocardiogram which was done two days ago did show ejection fraction of 67% with no wall motion abnormality. The cardiac cycle appeared to be irregular on the echo. The inferior vena cava is enlarged, and there is moderate pulmonary artery hypertension. ASSESSMENT: 1. Acute on chronic hypercarbic respiratory failure. The patient is on BiPAP therapy, pCO2 is down to 69 this morning. 2. Acute hypoxemic respiratory failure improved. 3. Altered mental status on presentation presumably a combination of CO2 narcosis and narcotic medications side effects. The patient's mentation has improved. 4. Recent fall resulting into a right hip fracture. The patient is status post repair in [place]. 5. History of atrial fibrillation. 6. Mild congestive heart failure with preserved ejection fraction. Patient is on diuretic therapy. 7. History of atrial fibrillation/atrial flutter with ablation in [place] in the past. The patient is on Eliquis for stroke prophylaxis. 8. Moderate pulmonary hypertension with pulmonary artery systolic pressure of 65 on echo. 9. History of obstructive sleep apnea and COPD. PLAN: In general, Ms. Chadwick is doing a whole lot better. Breathing has significantly improved, and her mentation has gotten better. We are going to transfer her from the ICU to the regular medical floor. We will get physical therapy to also start working with her. We will repeat her ABGs tomorrow morning. If there continues to be a trend of improvement in her pCO2, I think we will be able to discharge her pending final recommendations from Pulmonary Medicine. cc: Alvarez Mei MD
[2019-04-22] MEDS: DUONEB (A & A) INH SCH ×6 (03:45→23:21)
[2019-04-22 05:43] LABS: ALLEN TEST YES; BE 25.7 mmoll (-3.0-3.0); BLOOD TYPE ARTERIAL; O2(CT) 11.9 mL/dL (15.0-23.0); O2HB 95.3 % (95.0-99.0); PO2(98.6) 92 mmHg (60-100); SAMPLE BLOOD; SAO2 98.2 % (95.0-100.0); THB 8.8 g/dL (11.5-17.4); pH(98.6) 7.51 (7.35-7.45)
[2019-04-22 05:44] LABS: MODALITY BI PAP; PCO2(98.6) 65 mmHg (35-45)
[2019-04-22 07:37] LABS: ESTIMATED GFR > 60
[2019-04-22 07:41] LABS: AGAP 8; ALBUMIN 3.1 g/dL (3.5-5.0); BUN 11 mg/dL (8-22); CALCIUM 8.9 mg/dL (8.8-10.2); CHLORIDE 95 mmol/L (98-107); COSMO 286; CREATININE 0.8 mg/dL (0.5-0.9); GLUCOSE 94 mg/dL (70-104); PHOSPHORUS 4.4 mg/dL (2.7-4.5); POTASSIUM 3.5 mmol/L (3.5-5.1); SODIUM 144 mmol/L (136-145); TCO2 41 mmol/L (25-35)
[2019-04-22] MEDS: ELIQUIS PO SCH ×2 (08:33→21:00)
[2019-04-22] MEDS: LASIX PO SCH (08:33)
[2019-04-22] MEDS: SYNTHROID PO SCH (08:33)
[2019-04-22] MEDS: CALTRATE 600 + D PO SCH ×2 (08:33→21:00)
[2019-04-22] MEDS: DITROPAN PO SCH (08:34)
[2019-04-22] MEDS: PROTONIX PO SCH (08:34)
[2019-04-22] MEDS: LYRICA PO SCH ×2 (08:34→21:00)
[2019-04-22] MEDS: CYMBALTA PO SCH (08:34)
[2019-04-22] MEDS: PERICOLACE PO SCH ×2 (08:35→21:00)
[2019-04-22] MEDS: DULCOLAX PR SCH (08:38)
--- NOTE | 2019-04-22 14:54 | PROGRESS NOTE ---
DATE: 04/22/2019 SUBJECTIVE: This morning Ms. Chadwick referred to be doing okay. No new complaints. Mentation is significantly improved. OBJECTIVE: Vital signs: Blood pressure 139/60, pulse of 82, respirations 18, and temperature 98.1 degrees. General: Ms. Chadwick is 73-year-old female. She is in bed in no distress. Mucosa is pink and moist. Anicteric. Acyanotic. Neck: Supple. Chest: Good air entry bilaterally. No crepitations. Cardiovascular: Regular rate and rhythm. Abdomen: Soft, nontender. Bowel sounds present. 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 No focal neurological deficit. LABORATORY DATA: No CBC for today. Chemistry is reviewed, and is completely unremarkable except for mild elevation in the bicarb which is chronic. pCO2 is 65. ASSESSMENT: 1. Acute on chronic hypercarbic respiratory failure improving. 2. Acute hypoxemic respiratory failure improved. 3. Altered mental status on presentation secondary to combination of CO2 narcosis and narcotic medication side effects. Mentation improved. 4. Recent fall resulting into a right hip fracture status post orthopedic intervention. 5. History of atrial fibrillation currently rate controlled. 6. Mild congestive heart failure with preserved ejection fraction. The patient is currently euvolemic. 7. History of atrial fibrillation/atrial flutter. The patient had ablation in the past in [place]. She is currently on Eliquis for stroke prophylaxis. 8. Moderate pulmonary hypertension with pulmonary artery systolic pressure of 65 mmHg on echo. 9. History of obstructive sleep apnea and COPD. In general, Ms. Chadwick's mentation is improved. PCO2 is also trending down. She is being evaluated for trilogy. I think once all that arrangement is okay, she can be discharged whenever it is okay with Pulmonary Medicine. cc: Alvarez Mei MD MTDD
[2019-04-23] MEDS: DUONEB (A & A) INH SCH ×6 (03:19→23:20)
[2019-04-23 04:43] LABS: BLOOD TYPE ARTERIAL; SAMPLE BLOOD
[2019-04-23 04:44] LABS: ALLEN TEST YES; BE 23.9 mmoll (-3.0-3.0); HCO3-(ACT) 43.5 mmoll (20.0-26.0); METHB 0.8 % (0.0-1.5); O2(CT) 12.1 mL/dL (15.0-23.0); O2HB 93.6 % (95.0-99.0); PO2(98.6) 73 mmHg (60-100); SAO2 96.6 % (95.0-100.0); THB 9.1 g/dL (11.5-17.4); pH(98.6) 7.41 (7.35-7.45)
[2019-04-23 04:47] LABS: MODALITY BI PAP; PCO2(98.6) 82 mmHg (35-45)
[2019-04-23] MEDS: DITROPAN PO SCH (08:48)
[2019-04-23] MEDS: PROTONIX PO SCH (08:48)
[2019-04-23] MEDS: CALTRATE 600 + D PO SCH ×2 (08:49→21:12)
[2019-04-23] MEDS: SYNTHROID PO SCH (08:49)
[2019-04-23] MEDS: LASIX PO SCH (08:49)
[2019-04-23] MEDS: PERICOLACE PO SCH ×2 (08:49→21:13)
[2019-04-23] MEDS: ELIQUIS PO SCH ×2 (08:49→21:12)
[2019-04-23] MEDS: CYMBALTA PO SCH (08:49)
[2019-04-23] MEDS: LYRICA PO SCH ×2 (08:49→21:12)
[2019-04-23] MEDS: DULCOLAX PR SCH (09:37)
[2019-04-23 10:29] LABS: ALLEN TEST YES; BE 24.1 mmoll (-3.0-3.0); BLOOD TYPE ARTERIAL; HCO3-(ACT) 43.7 mmoll (20.0-26.0); METHB 1.1 % (0.0-1.5); O2(CT) 11.9 mL/dL (15.0-23.0); O2HB 92.3 % (95.0-99.0); PO2(98.6) 68 mmHg (60-100); SAMPLE BLOOD; SAO2 95.4 % (95.0-100.0); THB 9.1 g/dL (11.5-17.4); pH(98.6) 7.46 (7.35-7.45)
[2019-04-23 10:32] LABS: MODALITY CANNULA; PCO2(98.6) 72 mmHg (35-45)
--- NOTE | 2019-04-23 19:01 | PROGRESS NOTE ---
DATE: 04/23/2019 SUBJECTIVE: This morning Ms. Chadwick referred to be doing okay, denies any new complaints. OBJECTIVE: Vital Signs: Blood pressure is 112/55, pulse of 67, respirations 16, temperature 98.3 degrees. General: Ms. Chadwick is a 73-year-old female. She is in bed, in no distress. HEENT: Mucosa is pink and moist. Anicteric. Acyanotic. Neck: Supple. Chest: Clear to auscultation. No crepitations. No rhonchi. Cardiovascular: Regular rate and rhythm. Abdomen: Soft, nontender. Bowel sounds present. Extremities: No pedal edema. Central Nervous System: The patient is awake, alert, and oriented. There is no focal neurological deficit. LABORATORY DATA: ABGs show a pCO2 is down to 72. Early this morning it was 82. ASSESSMENT AND PLAN: 1. Acute on chronic hypercarbic respiratory failure. 2. Acute hypoxemic respiratory failure, resolved. 3. Altered mental status on presentation secondary to combination of CO2 narcosis and narcotic medication side effects. Mentation is resolved. 4. History of recent fall with resulting into a right hip fracture, status post orthopedic intervention. 5. Paroxysmal atrial fibrillation, currently rate controlled. 6. Mild congestive heart failure with preserved ejection fraction. The patient is currently euvolemic. 7. Moderate pulmonary hypertension with pulmonary artery systolic pressure of 65 mmHg on echocardiogram noted. 8. History of obstructive sleep apnea and chronic obstructive pulmonary disease. In general, Ms. Chadwick is clinically stable. She is alert, oriented, and mentating well. However, her pCO2 is still in the 70s. I have discussed this with Dr. Tidwell. He prefers the patient's pCO2 to be in the 60s before she is discharged. cc: Alvarez Mei MD
[2019-04-24] MEDS: DUONEB (A & A) INH SCH ×6 (03:20→23:45)
[2019-04-24 03:40] LABS: ALLEN TEST YES; BLOOD TYPE ARTERIAL; HCO3-(ACT) 45.2 mmoll (20.0-26.0); METHB 1.1 % (0.0-1.5); O2HB 94.7 % (95.0-99.0); PO2(98.6) 84 mmHg (60-100); SAMPLE BLOOD; SAO2 97.9 % (95.0-100.0); THB 8.9 g/dL (11.5-17.4); pH(98.6) 7.46 (7.35-7.45)
[2019-04-24 03:42] LABS: MODALITY BI PAP; PCO2(98.6) 75 mmHg (35-45)
[2019-04-24] MEDS: LASIX PO SCH (08:24)
[2019-04-24] MEDS: PROTONIX PO SCH (08:24)
[2019-04-24] MEDS: ELIQUIS PO SCH ×2 (08:24→20:25)
[2019-04-24] MEDS: SYNTHROID PO SCH (08:24)
[2019-04-24] MEDS: CALTRATE 600 + D PO SCH ×2 (08:25→20:25)
[2019-04-24] MEDS: PERICOLACE PO SCH ×2 (08:25→20:25)
[2019-04-24] MEDS: CYMBALTA PO SCH (08:25)
[2019-04-24] MEDS: DITROPAN PO SCH (08:25)
[2019-04-24] MEDS: DULCOLAX PR SCH (08:32)
[2019-04-24] MEDS: LYRICA PO SCH ×2 (09:00→20:25)
--- NOTE | 2019-04-24 12:45 | PROGRESS NOTE ---
DATE: 04/24/2019 SUBJECTIVE: This morning, Ms. Rodríguez referred to be doing well. She denies any new complaints. She is frustrated because she has not been discharged. OBJECTIVE: Vital signs: Blood pressure is 136/49, pulse of 65, respirations 17, temperature 99.3 degrees. General: Ms. Farrukh barlow is a 73-year-old, elderly female. She is in bed. No distress. Mucosa is pink and moist. Anicteric. Acyanotic. Neck: Supple. Chest: Good air entry bilateral. There were no crepitations. No rhonchi. No any accessory muscle use. Cardiovascular: Regular rate and rhythm. No murmurs, no rubs, no gallops. Abdomen: Soft, nontender. Bowel sounds present. Extremities: No pedal edema. 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 LABORATORY DATA: PH is 7.46, pCO2 75, PaO2 is 84. I's and O's: Urine output is 2050. Patient is currently negative balance of 8665. ASSESSMENT: 1. Acute on chronic hypercarbic respiratory failure, pCO2 is still a little high, but I think this is the patient's new baseline. She seems to have compensated metabolic alkalosis as a result of the chronic respiratory acidosis. 2. Acute hypoxemic respiratory failure resolved. 3. Altered mental status on presentation secondary to combination of CO2 narcosis and narcotic medication side effect. The patient's mentation is resolved. 4. History of a recent fall resulting into a right hip fracture status post orthopedic intervention. 5. Paroxysmal atrial fibrillation, currently rate controlled. 6. Mild congestive heart failure with preserved ejection fraction. The patient is currently euvolemic. She is actually remarkably negative balance. 7. Moderate pulmonary hypertension with pulmonary artery systolic pressure of 65 mmHg on echo noted. 8. History of obstructive sleep apnea and chronic obstructive pulmonary disease. PLAN: In general, I think Ms. Rodríguez is stable. I think she can be discharged. Her pCO2 is slightly elevated. However, I think that is her new baseline. She seems to have a compensated metabolic alkalosis with it. We will still be pending evaluation from Pulmonary Medicine to see if the patient can be discharged from their standpoint. cc: Alvarez Mei MD
[2019-04-25] MEDS: DUONEB (A & A) INH SCH ×3 (03:25→11:40)
[2019-04-25 03:45] LABS: ALLEN TEST YES; BE 22.2 mmoll (-3.0-3.0); BLOOD TYPE ARTERIAL; HCO3-(ACT) 42.2 mmoll (20.0-26.0); METHB 0.5 % (0.0-1.5); O2(CT) 12.5 mL/dL (15.0-23.0); O2HB 95.6 % (95.0-99.0); PO2(98.6) 90 mmHg (60-100); SAMPLE BLOOD; THB 9.2 g/dL (11.5-17.4); pH(98.6) 7.47 (7.35-7.45)
[2019-04-25 03:46] LABS: MODALITY BI PAP; PCO2(98.6) 67 mmHg (35-45)
[2019-04-25] MEDS: CALTRATE 600 + D PO SCH (08:39)
[2019-04-25] MEDS: SYNTHROID PO SCH (08:39)
[2019-04-25] MEDS: CYMBALTA PO SCH (08:39)
[2019-04-25] MEDS: ELIQUIS PO SCH (08:39)
[2019-04-25] MEDS: PROTONIX PO SCH (08:39)
[2019-04-25] MEDS: DITROPAN PO SCH (08:39)
[2019-04-25] MEDS: LASIX PO SCH (08:40)
[2019-04-25] MEDS: DULCOLAX PR SCH ×2 (08:42→09:16)
[2019-04-25] MEDS: PERICOLACE PO SCH ×2 (08:42→09:17)
[2019-04-25] MEDS: LYRICA PO SCH (08:44)
[2019-04-25 12:02] VITALS: BP 136/52
--- NOTE | 2019-04-25 12:24 | DISCHARGE SUMMARY ---
ADMISSION DATE: 04/18/2019 DISCHARGE DATE: 04/25/2019 DISPOSITION: Home. FOLLOWUP: Followup will be with: 1. Dr. Susana Bryant. 2. Dr. Tidwell. CONSULTATIONS DURING THIS ADMISSION: Pulmonary Medicine was consulted. The patient was seen by Dr. Tidwell. INVASIVE PROCEDURES DONE DURING THIS ADMISSION: None. IMAGING STUDIES OF SIGNIFICANCE: 1. A chest x-ray did reveal cardiomegaly and pulmonary edema. 2. A CT scan of the head showed no acute pathology. 3. An echocardiogram showed an ejection fraction of 67% with a trivial degree of tricuspid regurgitation, moderate pulmonary artery hypertension. ADMISSION DIAGNOSES: 1. Questionable accidental overdose. 2. Carbon dioxide retention. 3. Acute hypoxemic respiratory failure. 4. History of Guillain-[place]. DIAGNOSES AT TIME OF DISCHARGE: 1. Acute on chronic hypercarbic respiratory failure. 2. Acute hypoxemic respiratory failure, resolved. 3. Altered mental status on presentation secondary to a combination of carbon dioxide narcosis and narcotic medication side effects. Mentation has improved. 4. History of recent fall, resulting in a right hip fracture, status post orthopedic intervention. 5. History of paroxysmal atrial fibrillation, currently rate controlled. 6. Mild congestive heart failure with preserved ejection fraction. 7. Moderate pulmonary hypertension with pulmonary artery systolic pressure of 65 mmHg on echocardiogram. 8. Obstructive sleep apnea. The patient is on continuous positive airway pressure. 9. Chronic obstructive pulmonary disease with mild exacerbation, resolved. DISCHARGE MEDICATIONS: 1. Cymbalta 30 mg p.o. daily. 2. Levothyroxine 112 mcg p.o. daily. 3. Lisinopril 40 mg b.i.d. 4. Oxybutynin 5 mg daily. 5. Metolazone 5 mg p.o. daily. 6. Eliquis 5 mg b.i.d. 7. Lyrica 50 mg b.i.d. 8. Spironolactone 25 mg p.o. daily. 9. [place]. 10. Pantoprazole 40 mg p.o. daily. 11. Furosemide 40 mg p.o. daily. PRESENTING COMPLAINT: Altered mental status and lethargy. HISTORY OF PRESENTING COMPLAINT: Ms. Chadwick is a 73-year-old female with history of multiple comorbidities, who recently sustained a right hip fracture and was intervened upon. The patient was at [facility] for rehabilitation. Unfortunately, a day prior to presentation, she started having some altered mental status, was found remarkably lethargic, was brought to the emergency department, where she was evaluated and admitted for altered mental status. HOSPITAL COURSE: Ms. Chadwick's psychotropic as well as narcotic medications were all withheld, and was adequately fluid resuscitated. She was also found to be hypercarbic and hypoxemic, so she was started on BiPAP therapy. She did improve. Her mentation significantly improved overnight, and some of her home medications were restarted. During the hospital course, Ms. Chadwick was evaluated by Physical Therapy. Unfortunately, during the hospital course, her pCO2 continued to have an up and down trend until today when it has come down to 67. Pulmonary Medicine is okay for the patient to be discharged. I have personally spoken with Dr. Tidwell, and we have reviewed the results. Ms. Chadwick will follow up with her primary care doctor, as well as with Dr. Tidwell. All the discharge instructions have been discussed with her, and she voiced understanding. TIME SPENT: Time spent for discharge is 38 minutes. cc: MD Susana Gómez MD
== END 2019-04-25 14:05 | disposition home health service (06) | DRG 917 ==
LOC: SUPCPDRO → ED 10:45 → EDIPHOLD 14:55 → 1N 04-19 10:32 → ICU 04-20 09:22 → 1N 04-21 13:00
PROVIDERS: ATTEND Internal Medicine